=== PATIENT | female | born 1990 | race Caucasian/White ===

== ENCOUNTER 2016-09-30 20:03 | Emergency (ER) | payer OTHER ==
[2016-09-30 20:08] VITALS: BP 136/72; PULSE 71; TEMP 98.5; BMI 30.7
[2016-09-30 21:07] LABS: BASOPHIL 0.5 % (0-2.0); EOSINOPHIL 1.7 % (0-4.5); MCH 27.2 pg (25.7-33.7); MCHC 32.9 g/dl (32.0-36.0); MEAN CELL VOLUME 82.5 fl (80-96); MEAN PLT VOLUME 9.2 fl (7.5-11.1); NEUTROPHILS 50.4 % (42.8-82.8); PLATELET COUNT 221 K/MM3 (134-434); RDW 14.1 % (11.6-15.6); WHITE BLOOD COUNT 11.3 K/mm3 (4.0-10.0)
[2016-09-30 21:31] LABS: ALBUMIN 3.7 g/dl (3.4-5.0); ANION GAP 9 (8-16); BILIRUBIN,TOTAL 0.1 mg/dL (0.2-1.0); CALCIUM 7.8 mg/dL (8.5-10.1); CO2 26 mmol/L (21-32); CREATININE 0.8 mg/dL (0.55-1.02); GLUCOSE,RANDOM 92 mg/dL (74-106); SGOT/AST 12 U/L (15-37); SGPT/ALT 13 U/L (12-78); TOT PROT 7.2 g/dl (6.4-8.2)
[2016-09-30 21:40] LABS: ALK PHOS 107 U/L (45-117); FREE T4 0.85 ng/dl (0.76-1.46); THYROID STIMULATING HORMONE 0.51 uIU/ml (0.358-3.74); TROPONIN I < 0.02 ng/ml (0.00-0.05)
--- NOTE | 2016-09-30 21:57 | PDOC ---
History of Present Illness - History of Present Illness Initial Comments: 09/30/16 21:59 Patient is a 26 year old female with significant medical hx of hyperthyroidism who is presenting to the ED with chest pain and numbness/tingling to her hands bilaterally. Patient complains of substernal chest pain that has been intermittent for the past year. Her pain is sharp, stabbing, and pleuritic in nature; it is non-radiating. The patient was worked up in the ED one year ago for her chest pain; she was diagnosed with pleurisy and discharged. The patient has a secondary complaint of numbness/tingling to her hands bilaterally. The patient reports that shes always had this sensation in her hands but it worsened the past several days. She notes that her numbness is worse in her left hand. Patient admits that she ran out of her hyperthyroid medication three days ago and has stopped taking her medication since. Denies shortness of breath, diaphoresis, nausea, vomiting, diarrhea, headaches, loss of consciousness, vertigo, or recent trauma. PMD: Juan José Julian MD <Mariana Matthews - Last Filed: 09/30/16 21:59> - General History Source: Patient, Old Records Exam Limitations: No Limitations <Keny Elkins - Last Filed: 09/30/16 22:59> - General Chief Complaint: Chest Pain Stated Complaint: CHEST PAIN/BOTH HANDS SWOLLEN/NUMB Time Seen by Provider: 09/30/16 20:13 Past History <Mariana Matthews - Last Filed: 09/30/16 21:59> - Past Medical History Asthma: No Cancer: No Cardiac Disorders: No Diabetes: No HTN: No Seizures: No Thyroid Disease: Yes (hyperthyroid) - Immunization History Immunization Up to Date: Yes - Psycho/Social/Smoking Cessation Hx Anxiety: No Suicidal Ideation: No Smoking Status: No Smoking History: Never smoked Have you smoked in the past 12 months: No Number of Cigarettes Smoked Daily: 0 Hx Alcohol Use: No Drug/Substance Use Hx: No Substance Use Type: None Hx Substance Use Treatment: No <Keny Elkins - Last Filed: 09/30/16 22:59> - Past Medical History Allergies/Adverse Reactions: Allergies Allergy/AdvReac Type Severity Reaction Status Date / Time No Known Allergies Allergy Verified 09/30/16 20:05 Home Medications: Ambulatory Orders Methimazole 10 mg PO DAILY 08/27/15 Propranolol HCl [Inderal -] 10 mg PO DAILY 08/27/15 Methimazole 10 mg PO BID #60 tablet 09/30/16 Review of Systems - Review of Systems Comments:: 09/30/16 21:59 GENERAL/CONSTITUTIONAL: No fever or chills. No weakness. HEAD, EYES, EARS, NOSE AND THROAT: No change in vision. No ear pain or discharge. No sore throat. CARDIOVASCULAR: Chest pain. No shortness of breath. RESPIRATORY: No cough, wheezing, or hemoptysis. GASTROINTESTINAL: No nausea, vomiting, diarrhea or constipation. GENITOURINARY: No dysuria, frequency, or change in urination. MUSCULOSKELETAL: No joint or muscle swelling or pain. No neck or back pain. SKIN: No rash NEUROLOGIC: Numbness/tingling to hands bilaterally. No headache, vertigo, or loss of consciousness. <Mariana Matthews - Last Filed: 09/30/16 21:59> *Physical Exam - Vital Signs Last Vital Signs Temp Pulse Resp BP Pulse Ox 98.5 F 71 18 136/72 100 09/30/16 20:07 09/30/16 20:07 09/30/16 20:07 09/30/16 20:07 09/30/16 20:07 - Physical Exam Comments: 09/30/16 22:01 GENERAL: Awake, alert, and fully oriented, in no acute distress HEAD: No signs of trauma EYES: PERRLA, EOMI, sclera anicteric, conjunctiva clear ENT: Auricles normal inspection, hearing grossly normal, nares patent, oropharynx clear without exudates. Moist mucosa NECK: Normal ROM, supple, no lymphadenopathy, JVD, or masses LUNGS: Breath sounds equal, clear to auscultation bilaterally. No wheezes, and no crackles HEART: Regular rate and rhythm, normal S1 and S2, no murmurs, rubs or gallops ABDOMEN: Soft, nontender, normoactive bowel sounds. No guarding, no rebound. No masses EXTREMITIES: Normal range of motion, no edema. No clubbing or cyanosis. No cords, erythema, or tenderness NEUROLOGICAL: Paresthesias elicited on the medial aspect on the bilateral upper extremities. Paresthesias and subjective numbness bilateral hands. Cranial nerves II through XII grossly intact. Normal speech, normal gait SKIN: Warm, Dry, normal turgor, no rashes or lesions noted. ENDOCRINE: No increased thirst. No abnormal weight change. HEMATOLOGIC/LYMPHATIC: No anemia, easy bleeding, or history of blood clots. ALLERGIC/IMMUNOLOGIC: No hives or skin allergy. <Mariana Matthews - Last Filed: 09/30/16 21:59> - Vital Signs Last Vital Signs Temp Pulse Resp BP Pulse Ox 98.5 F 71 18 136/72 100 09/30/16 20:07 09/30/16 20:07 09/30/16 20:07 09/30/16 20:07 09/30/16 20:07 <Keny Elkins - Last Filed: 09/30/16 22:59> Heart Score/ECG Review #1 ECG reviewed & interpreted by me at: 20:10 09/30/16 22:34 NSR 72, T wave flat III, no std/cyndie, normal axis, normal intervals, QTC 444 msec. <Keny Elkins - Last Filed: 09/30/16 22:59> ED Treatment Course - LABORATORY CBC & Chemistry Diagram: 09/30/16 20:54 09/30/16 20:54 - ADDITIONAL ORDERS Additional order review: Laboratory Results 09/30/16 20:54 Sodium 140 Potassium 3.8 Chloride 105 Carbon Dioxide 26 Anion Gap 9 BUN 11 D Creatinine 0.8 D Creat Clearance w eGFR > 60 Random Glucose 92 Calcium 7.8 L Total Bilirubin 0.1 L AST 12 L D ALT 13 D Alkaline Phosphatase 107 D Creatine Kinase 90 Troponin I < 0.02 Total Protein 7.2 Albumin 3.7 TSH 0.51 D Free T4 0.85 D 09/30/16 20:54 RBC 4.45 MCV 82.5 MCHC 32.9 RDW 14.1 MPV 9.2 Neutrophils % 50.4 Lymphocytes % 42.9 H Monocytes % 4.5 Eosinophils % 1.7 D Basophils % 0.5 <Mariana Matthews - Last Filed: 09/30/16 21:59> - LABORATORY CBC & Chemistry Diagram: 09/30/16 20:54 09/30/16 20:54 - ADDITIONAL ORDERS Additional order review: Laboratory Results 09/30/16 20:54 Sodium 140 Potassium 3.8 Chloride 105 Carbon Dioxide 26 Anion Gap 9 BUN 11 D Creatinine 0.8 D Creat Clearance w eGFR > 60 Random Glucose 92 Calcium 7.8 L Total Bilirubin 0.1 L AST 12 L D ALT 13 D Alkaline Phosphatase 107 D Creatine Kinase 90 Troponin I < 0.02 Total Protein 7.2 Albumin 3.7 TSH 0.51 D Free T4 0.85 D 09/30/16 20:54 RBC 4.45 MCV 82.5 MCHC 32.9 RDW 14.1 MPV 9.2 Neutrophils % 50.4 Lymphocytes % 42.9 H Monocytes % 4.5 Eosinophils % 1.7 D Basophils % 0.5 <Keny Elkins - Last Filed: 09/30/16 22:59> Medical Decision Making - Medical Decision Making 09/30/16 22:52 A portion of this note was documented by scribe services under my direction. I have reviewed the details of the note, within reason, and agree with the documentation with the following case summary and management plan written by me. Patient treated in the ED. Nursing notes are reviewed and incorporated into the medical decision-making. Vital signs reviewed. Peripheral IV access obtained by the nurse, laboratory studies are drawn and sent, reviewed and interpreted by myself. Vital Signs Temp Pulse Resp BP Pulse Ox 98.5 F 71 18 136/72 100 09/30/16 20:07 09/30/16 20:07 09/30/16 20:07 09/30/16 20:07 09/30/16 20:07 26-year-old female with past medical history of hyperthyroidism presents with chronic atypical chest pain for one year and intermittent and paresthesias of her bilateral hands for proximal one year as well. Patient stated that her tingling and paresthesias of her digits and of her hand and forearm has progressively worsened. She denies any injuries. Denies other neurological deficits. Patient also reports that she's been having this chronic, unchanged in intensity or characteristic, chest pain that comes and goes not always exertional. This has been occurring for over a year. She states that she is not concerned with the chest pain as this has not changed and came for her operation was. The patient is vascularly intact. She has the subjective paresthesias. Labs were sent to look for electrolyte abnormalities but demonstrated none. EKG was normal. Patient reports that she had a recent negative EMG test. At this time, it is unclear what the etiology is of her paresthesias of her hands. However, given that this is chronic, we'll refer this to neurology for further evaluation. <Keny Elkins - Last Filed: 09/30/16 22:59> *DC/Admit/Observation/Transfer - Attestations Scribe Attestion: 09/30/16 22:01 Documentation prepared by Mariana Matthews, acting as district medical examiner for Keny Elkins MD. <Mariana Matthews - Last Filed: 09/30/16 21:59> - Discharge Dispostion Admit: No <Keny Elkins - Last Filed: 09/30/16 22:59> Diagnosis at time of Disposition: Hand paresthesia Qualifiers: Laterality: bilateral Qualified Code(s): R20.2 - Paresthesia of skin - Discharge Dispostion Disposition: HOME Condition at time of disposition: Stable - Prescriptions Prescriptions: Methimazole 10 mg PO BID #60 tablet - Referrals Referrals: Juan José Julian MD [Primary Care Provider] - Сергей Roberts MD [Staff Physician] - Torsten Kaye MD [Staff Physician] - - Patient Instructions Printed Discharge Instructions: DI for Atypical Chest Pain, DI for Numbness/ tingling Additional Instructions: Please follow up a neurologist. Please follow up with a soakers supervisor.
[2016-09-30] MEDS ORDERED: METHIMAZOLE 10 MG TABLET (FP) PO SCH (22:00)
--- NOTE | 2016-10-02 22:32 | EKG ---
Test Reason : Blood Pressure : / mmHG Vent. Rate : 072 BPM Atrial Rate : 072 BPM P-R Int : 152 ms QRS Dur : 082 ms QT Int : 406 ms P-R-T Axes : 019 008 030 degrees QTc Int : 444 ms NORMAL SINUS RHYTHM NORMAL ECG WHEN COMPARED WITH ECG OF 27-AUG-2015 12:31, NO SIGNIFICANT CHANGE WAS FOUND Confirmed by ELEN WRIGHT MD ([id number]) on 10/02/2016 10:32:25 PM Referred By: Confirmed By:ELEN WRIGHT MD
== END 2016-10-01 00:17 | disposition home or self-care (01) ==
LOC: JER 20:03
DX: R20.2 Paresthesia of skin (principal)
CPT/HCPCS: 36415; 80053; 82550; 84439; 84443; 84481; 84484; 85025; 93005; 93010; 99283-25

== ENCOUNTER 2017-04-24 19:57 | Emergency (ER) | payer OTHER ==
[2017-04-24 20:03] VITALS: BP 131/82; PULSE 68; TEMP 98.1; BMI 30.3
--- NOTE | 2017-04-24 20:47 | PDOC ---
History of Present Illness - General Chief Complaint: Headache Stated Complaint: CHEST PAIN Time Seen by Provider: 04/24/17 20:43 Past History - Past Medical History Allergies/Adverse Reactions: Allergies Allergy/AdvReac Type Severity Reaction Status Date / Time No Known Allergies Allergy Verified 09/30/16 20:05 Home Medications: Ambulatory Orders Methimazole 10 mg PO DAILY 08/27/15 Propranolol HCl [Inderal -] 10 mg PO DAILY 08/27/15 Methimazole 10 mg PO BID #60 tablet 09/30/16 Asthma: No Cancer: No Cardiac Disorders: No Diabetes: No HTN: No Seizures: No Thyroid Disease: Yes (hyperthyroid) - Immunization History Immunization Up to Date: Yes - Suicide/Smoking/Psychosocial Hx Smoking Status: No Smoking History: Never smoked Have you smoked in the past 12 months: No Number of Cigarettes Smoked Daily: 0 Information on smoking cessation initiated: No Hx Alcohol Use: No Drug/Substance Use Hx: No Substance Use Type: None Hx Substance Use Treatment: No *Physical Exam - Vital Signs Last Vital Signs Temp Pulse Resp BP Pulse Ox 98.1 F 68 16 131/82 100 04/24/17 20:00 04/24/17 20:00 04/24/17 20:00 04/24/17 20:00 04/24/17 20:00
--- NOTE | 2017-04-24 20:53 | PDOC ---
Attending Attestation - HPI HPI: 04/24/17 21:59 26 yo F with a significant past medical history of hyperthyroidism (non- compliant with meds), who presents to the emergency department with generalized headache for 2 days. She also complains of midsternal non-radiating chest pain beginning today, worsened on inspiration. Reports some nausea, denies vomiting, and took Tylenol with no significant relief. She also notes feeling cold and tired recently with associated bilateral leg cramping after walking. Pt used to see decision unit rn Dr. Hodge. Pt denies weight loss, shortness of breath, F/C. The patient denies dysuria, frequency, urgency and hematuria. - Physicial Exam PE: 04/24/17 21:59 GENERAL: Awake, alert, and fully oriented, in no acute distress HEAD: No signs of trauma EYES: PERRLA, EOMI, sclera anicteric, conjunctiva clear ENT: Auricles normal inspection, hearing grossly normal, nares patent, oropharynx clear without exudates. Moist mucosa NECK: (+) Mild thyromegaly. Normal ROM, supple. No JVD, or masses LUNGS: Breath sounds equal, clear to auscultation bilaterally. No wheezes, and no crackles HEART: Regular rate and rhythm, normal S1 and S2, no murmurs, rubs or gallops. ( +) Anterior chest wall ttp. ABDOMEN: Soft, nontender, normoactive bowel sounds. No guarding, no rebound. No masses EXTREMITIES: (+) Bilateral calf tenderness. Normal range of motion, no edema. No clubbing or cyanosis. No cords, erythema. NEUROLOGICAL: Cranial nerves II through XII grossly intact. Normal speech, normal gait SKIN: Warm, Dry, normal turgor, no rashes or lesions noted. <Joanna Rodriguez - Last Filed: 04/24/17 21:59> - Resident Resident Name: Laron Winslow - ED Attending Attestation I have performed the following: I have examined & evaluated the patient, The case was reviewed & discussed with the resident, I agree w/resident's findings & plan, Exceptions are as noted - Medical Decision Making 04/24/17 20:53 I, Dr. Verónica Dickerson, DO, attest that this document has been prepared under my direction and personally reviewed by me in its entirety. I further attest, that it accurately reflects all work, treatment, procedures and medical decision -making performed by me. 04/24/17 22:01 a/p: 26yo female with leung and cp -hx of hyperthyroid -will check labs -atypical cp -calf pain, will check dimer -will medicate and reassess 04/24/17 23:26 pt feeling much better. Leung resolved. labs reviewed with the patient. states she is currently menstruating. 04/24/17 23:29 discussed all labs with the patient. Pt states all pain resolved. Stable for d/ c to home. Will give copy of labs for pt to take to dr. hodge office. pt understands all reasons to return to the ED and need for follow up. <Verónica Dickerson - Last Filed: 04/24/17 23:31> Discharge Disposition - Discharge Dispostion Last Admission D/C Date: 11/01/13 Admit: No <Verónica Dickerson - Last Filed: 04/24/17 23:31> - Diagnosis Discomfort of chest wall, Headache - Discharge Dispostion Disposition: HOME Condition at time of disposition: Stable - Referrals Referrals: Trey Hodge MD [Staff Physician] - - Patient Instructions Printed Discharge Instructions: DI for Headache, DI for Atypical Chest Pain Additional Instructions: Please follow up with your PMD and please bring your lab work with you to his office. Please return to the ED with any further concerns. Heart Score/ECG Review - ECG Intrepretation Comment:: 04/24/17 21:15 sinus at 66, nl axis, nl interval, nonspecific t wave inversions V2 <Verónica Dickerson - Last Filed: 04/24/17 23:31>
--- NOTE | 2017-04-24 21:09 | PDOC ---
History of Present Illness - General Chief Complaint: Headache Stated Complaint: CHEST PAIN Time Seen by Provider: 04/24/17 20:43 - History of Present Illness Initial Comments: 04/24/17 21:46 26F with pmh of hyperthyroidism untreated for the past 5 months presents with generalized 7/10 non-radiating headaches with nausea for the past 2 days as well as inspiratory sternal chest pain since yesterday. Headaches are without aura and have a mild photophobia component. Complains of scalp pain upon mere hair movement. She tried Tylenol but didn't work. She used to see Dr. Barclay for her hyperthyroidism treated at the time with Methimazole but just stopped following up. 5 months ago Complains of cold intolerance and hair loss recently. Denies weight loss or weight gain 04/24/17 22:19 Past History - Past Medical History Allergies/Adverse Reactions: Allergies Allergy/AdvReac Type Severity Reaction Status Date / Time No Known Allergies Allergy Verified 09/30/16 20:05 Home Medications: Ambulatory Orders Methimazole 10 mg PO DAILY 08/27/15 Propranolol HCl [Inderal -] 10 mg PO DAILY 08/27/15 Methimazole 10 mg PO BID #60 tablet 09/30/16 Asthma: No Cancer: No Cardiac Disorders: No Diabetes: No HTN: No Seizures: No Thyroid Disease: Yes (hyperthyroid) - Immunization History Immunization Up to Date: Yes - Suicide/Smoking/Psychosocial Hx Smoking Status: No Smoking History: Never smoked Have you smoked in the past 12 months: No Number of Cigarettes Smoked Daily: 0 Information on smoking cessation initiated: No Hx Alcohol Use: No Drug/Substance Use Hx: No Substance Use Type: None Hx Substance Use Treatment: No Review of Systems - Review of Systems Constitutional: Yes: Weight Stable. No: Chills, Diaphoresis, Fever, Loss of Appetite HEENTM: Yes: See HPI. No: Blurred Vision, Recent change in vision, Cataracts, Tinnitus Respiratory: No: Cough, Orthopnea, Shortness of Breath, Wheezing Cardiac (ROS): Yes: See HPI ABD/GI: No: Symptoms Reported : No: Symptoms Reported Musculoskeletal: No: Symptoms Reported Integumentary: No: Symptoms Reported Neurological: Yes: See HPI Endocrine: Yes: Intolerance to Cold. No: Excessive Sweating, Flushing, Intolerance to Heat, Increased Hunger, Increased Thirst, Increased Urine, Unexplained Weight Gain, Unexplained Weight Loss, Change in Weight All Other Systems: Reviewed and Negative *Physical Exam - Vital Signs Last Vital Signs Temp Pulse Resp BP Pulse Ox 98.1 F 68 16 131/82 100 04/24/17 20:00 04/24/17 20:00 04/24/17 20:00 04/24/17 20:00 04/24/17 20:00 - Physical Exam General Appearance: Yes: Nourished, Appropriately Dressed HEENT: positive: EOMI, KIKI, Normal ENT Inspection, Photophobia Neck: positive: Trachea midline, Thyromegaly (Mild). negative: Tender, Lymphadenopathy (R), Lymphadenopathy (L) Respiratory/Chest: positive: Chest Tender, Lungs Clear, Normal Breath Sounds Cardiovascular: positive: Regular Rhythm, Regular Rate, S1, S2 Gastrointestinal/Abdominal: positive: Normal Bowel Sounds, Soft, Protuberent. negative: Tender Integumentary: positive: Normal Color, Dry, Warm. negative: Diaphoresis Neurologic: positive: solution architect II-XII NML intact, Fully Oriented, Alert, Normal Mood/ Affect ED Treatment Course - LABORATORY CBC & Chemistry Diagram: 04/24/17 22:05 04/24/17 22:05 Medical Decision Making - Medical Decision Making 04/24/17 22:19 26F with pmh of hyperthyroidism untreated for the past 5 months presents with generalized 7/10 non-radiating headaches with nausea for the past 2 days as well as inspiratory sternal chest pain since yesterday. Labs and lytes with TSH and T4 pending
[2017-04-24] MEDS ORDERED: METOCLOPRAMIDE HCL INJECTION 10 MG/2 ML VIAL IVPUSH ONE (21:19)
[2017-04-24] MEDS ORDERED: SODIUM CHLORIDE 1,000 ML IV STA (21:20)
[2017-04-24] MEDS ORDERED: METOCLOPRAMIDE HCL INJECTION 10 MG/2 ML VIAL ONE (21:48)
[2017-04-24 22:13] LABS: BASOPHIL 0.4 % (0-2.0); EOSINOPHIL 1.5 % (0-4.5); MCH 27.1 pg (25.7-33.7); MCHC 32.9 g/dl (32.0-36.0); MEAN CELL VOLUME 82.2 fl (80-96); MEAN PLT VOLUME 8.6 fl (7.5-11.1); NEUTROPHILS 48.1 % (42.8-82.8); PLATELET COUNT 247 K/MM3 (134-434); RDW 13.6 % (11.6-15.6); WHITE BLOOD COUNT 10.7 K/mm3 (4.0-10.0)
[2017-04-24 22:21] LABS: URINE APPEARANCE SLCLOUDY; URINE BILIRUBIN NEGATIVE (NEGATIVE); URINE BLOOD 3+ (NEGATIVE); URINE COLOR YELLOW; URINE GLUCOSE (UA) NEGATIVE (NEGATIVE); URINE KETONE NEGATIVE (NEGATIVE); URINE NITRITE NEGATIVE (NEGATIVE); URINE UROBILINOGEN NEGATIVE mg/dL (0.2-1.0)
[2017-04-24 22:22] LABS: URINE PROTEIN 2+ (NEGATIVE)
[2017-04-24 22:23] LABS: URINE MUCUS MANY; URINE RBC 385 /hpf (0-3); URINE WBC 6 /hpf (3-5)
[2017-04-24 22:39] LABS: ALBUMIN 3.9 g/dl (3.4-5.0); ANION GAP 7 (8-16); BILIRUBIN,TOTAL 0.2 mg/dL (0.2-1.0); CALCIUM 7.7 mg/dL (8.5-10.1); CO2 26 mmol/L (21-32); CREATININE 0.6 mg/dL (0.55-1.02); GLUCOSE,RANDOM 85 mg/dL (74-106); SGOT/AST 12 U/L (15-37); SGPT/ALT 13 U/L (12-78); TOT PROT 7.5 g/dl (6.4-8.2)
[2017-04-24 22:47] LABS: ALK PHOS 82 U/L (45-117); FREE T4 1.21 ng/dl (0.76-1.46); THYROID STIMULATING HORMONE 1.04 uIU/ml (0.358-3.74)
[2017-04-24] MEDS ORDERED: IBUPROFEN 600 MG TABLET (FP) PO ONE ×2 (23:29→23:35)
[2017-04-24 23:31] LABS: URINE LEUK ESTERASE Negative (NEGATIVE)
--- NOTE | 2017-04-28 11:00 | EKG ---
Test Reason : Blood Pressure : / mmHG Vent. Rate : 066 BPM Atrial Rate : 066 BPM P-R Int : 156 ms QRS Dur : 082 ms QT Int : 424 ms P-R-T Axes : 018 016 031 degrees QTc Int : 444 ms NORMAL SINUS RHYTHM WITH SINUS ARRHYTHMIA NONSPECIFIC T WAVE ABNORMALITY WHEN COMPARED WITH ECG OF 30-SEP-2016 20:10, NO SIGNIFICANT CHANGE WAS FOUND Confirmed by SPIKE AHMADI MD ([id number]) on 04/28/2017 9:49:51 AM Also confirmed by SPIKE AHMADI MD ([id number]), society editor DARRIN FOWLER ([id number]) on 04/28/2017 11:00:13 AM Referred By: Confirmed By:SPIKE AHMADI MD
== END 2017-04-24 23:51 | disposition home or self-care (01) ==
LOC: JER 19:57
PROC: 3E033GC Introduction of Other Therapeutic Substance into Peripheral Vein, Percutaneous Approach (ICD-10-PCS; principal; 2017-04-24)
DX: R07.89 Other chest pain (principal); R51 Headache; E05.90 Thyrotoxicosis, unspecified without thyrotoxic crisis or storm; Z91.19 Patient's noncompliance with other medical treatment and regimen
CPT/HCPCS: 36415; 80053; 81003; 81015; 84439; 84443; 84481; 84703; 85025; 85379; 93005; 93010; 96374; 96375; 99282-25

== ENCOUNTER 2018-06-23 05:09 | Inpatient (IN) | payer OTHER ==
[2018-06-23] MEDS ORDERED: PROMETHAZINE HCL 25 MG/1 ML VIAL IVPUSH ONE (08:34)
[2018-06-23] MEDS ORDERED: BUTORPHANOL TARTRATE 1 MG/ML VIAL IVPB ONE (08:34)
[2018-06-23] MEDS ORDERED: DEXTROSE 5%-LACTATED RINGERS 1,000 ML IV SCH (08:45)
--- NOTE | 2018-06-23 08:51 | HP ---
Past Medical History - Primary Care Physician PCP:: Mary Fallon - Admission Chief Complaint: 27 yrs 39.3/7 weeks IUP admitted in alaina labor . onset LP since 3.00AM History of Present Illness: PNC at [address] [place] [id number] 43 lbs wt gain Panel 12/01/17 : O Pos, , hbsag neg, , Hgb S neg, Rubella immune, , Rpr nr, Lead neg pap 12/01/17 Nilm, gc/ct neg , Zika IGM neg . 03/23/18 Quantiferon neg, rpr nr, 1 hr gtt 101 06/04/18 : GBS neg, gc/ct neg , HIV neg h/h 11.3 SONO : done NT screen neg, AFP screen neg History Source: Patient, Medical Record Limitations to Obtaining History: No Limitations - Past Medical History PRE PRESS PROOFER: No: Migraine, Seizure Cardiovascular: No: HTN, Murmur Pulmonary: No: Asthma Gastrointestinal: Yes: Hemorrhoids Hepatobiliary: No: Hepatitis B Renal/: No: UTI ...: 2 ...Para: 1 ( 10/30/2013 [facility] 7'7") ...Term: 1 ...: 0 ...Spon : 0 ...Induced : 0 ...LMP: 09/20/17 ... Weeks Gestation by Dates: 39.3 ...EDC by Dates: 06/27/18 ...EDC by Sono: 06/27/18 Heme/Onc: No: Sickle Cell Trait Infectious Disease: No: AIDS, HIV, STD's Psych: No: Addictions, Anxiety, Bipolar, Depression, Panic, Psychosis, Schizophrenia, Other Endocrine: Yes: Other (pt states she has abn tft but does not require meds). No: Diabetes Mellitus, Hypothyroidism - Past Surgical History Past Surgical History: Yes: None Hx Myomectomy: No Hx Transabdominal Cerclage: No - Smoking History Smoking history: Never smoked Have you smoked in the past 12 months: No Aproximately how many cigarettes per day: 0 - Alcohol/Substance Use Hx Alcohol Use: No History of Substance Use: reports: None Home Medications - Allergies Allergies/Adverse Reactions: Allergies Allergy/AdvReac Type Severity Reaction Status Date / Time No Known Allergies Allergy Verified 02/08/18 20:25 - Home Medications Home Medications: Ambulatory Orders Vit,Calc76/Iron/Folic [Pnv 29-1 Tablet] 1 tab PO DAILY 06/23/18 Physical Exam - Maternity Vital Signs: Vital Signs Temperature 98.5 F 06/23/18 05:09 Pulse Rate 74 06/23/18 05:09 Respiratory Rate 20 06/23/18 05:09 Blood Pressure 127/67 06/23/18 05:09 O2 Sat by Pulse Oximetry (%) Selected Entries 06/23/18 08:44 Weight 206 lb Constitutional: Yes: Well Nourished, No Distress, Calm, Obese Eyes: Yes: WNL HENT: Yes: WNL, Normocephalic Neck: Yes: WNL, Trachea Midline Cardiovascular: Yes: WNL, Regular Rate and Rhythm Lungs: Clear to auscultation Breast(s): Yes: WNL - Abdominal Exam/OB Fundal Height: 38 Number of Fetuses: Single Presentation: Vertex Contractions: Yes Regularity: Irregular Intensity: Mild/Mod Monitor Mode: External Heart Rate (range): 150 Heart Rate Location: [facility] [place] Category: I Accelerations: Uniform Decelerations: None - Vaginal Exam/OB Vaginal Bleediing: Bloody Show Speculum Exam: No Dilatation (cm): 2 Effacement (%): 65 Amniotic Membrane Status: Intact Presentation: Vertex/Position Station: -2 (exam at 8.20 AM) - Physical Exam Musculoskeletal: Yes: WNL Extremities: Yes: WNL. No: Calf Tenderness Edema: Yes Edema: LLE: 1+, RLE: 1+ Integumentary: Yes: WNL Deep Tendon Reflex Grade: Normal +2 ...Motor Strength: WNL Psychiatric: Yes: WNL, Alert, Oriented - Labs Lab Results: Laboratory Tests 06/23/18 06/23/18 06/23/18 08:55 08:55 08:55 WBC 11.2 H RBC 4.55 Hgb 12.3 Hct 36.4 Plt Count 204 Absolute Neuts (auto) 8.2 H Neutrophils % 73.5 D Lymphocytes % 21.2 D Monocytes % 4.1 Eosinophils % 0.7 PT with INR 11.30 INR 0.96 PTT (Actin FS) 26.6 Sodium 137 Potassium 3.8 Chloride 105 Carbon Dioxide 22 BUN 9 Creatinine 0.5 L Random Glucose 67 L Calcium 8.2 L RPR Titer 06/23/18 08:55 WBC RBC Hgb Hct Plt Count Absolute Neuts (auto) Neutrophils % Lymphocytes % Monocytes % Eosinophils % PT with INR INR PTT (Actin FS) Sodium Potassium Chloride Carbon Dioxide BUN Creatinine Random Glucose Calcium RPR Titer Nonreactive Laboratory Tests 06/23/18 08:55 Blood Type O POSITIVE Problem List - Problems (1) Elective delivery before 39 weeks of gestation Code(s): NIE3483 - (2) First stage of labor established Code(s): CVH6134 - Assessment/Plan 27 yrs 39.3/7 weeks in labor GBS neg Plan ambulate pitocin augmentation prn trial vaginal delivery
[2018-06-23 09:01] VITALS: BMI 37.6
[2018-06-23 09:40] LABS: BASO % 0.5 % (0-2.0); EOS % 0.7 % (0-4.5); HEMATOCRIT 36.4 % (32.4-45.2); HEMOGLOBIN 12.3 GM/dL (10.7-15.3); LYMPH % 21.2 % (8-40); MCHC 33.8 g/dl (32.0-36.0); MEAN CELL VOLUME 79.9 fl (80-96); MEAN PLT VOLUME 10.1 fl (7.5-11.1); MONO % 4.1 % (3.8-10.2); NEUT % 73.5 % (42.8-82.8); PLATELET COUNT 204 K/MM3 (134-434); RBC 4.55 M/mm3 (3.60-5.2); RDW 14.6 % (11.6-15.6); WHITE BLOOD COUNT 11.2 K/mm3 (4.0-10.0)
[2018-06-23 10:01] LABS: INR 0.96 (0.83-1.09); PROTHROMBIN TIME (PATIENT) 11.3 SEC (9.7-13.0)
[2018-06-23 10:03] LABS: ACTIVATED PTT 26.6 SECONDS (25.2-36.5)
[2018-06-23 10:18] LABS: ANION GAP 10 MMOL/L (8-16); BLOOD UREA NITROGEN 9 mg/dL (7-18); CALCIUM 8.2 mg/dL (8.5-10.1); CHLORIDE 105 mmol/L (98-107); CO2 22 mmol/L (21-32); CREATININE 0.5 mg/dL (0.55-1.3); GLUCOSE,RANDOM 67 mg/dL (74-106); POTASSIUM 3.8 mmol/L (3.5-5.1); SODIUM 137 mmol/L (136-145)
[2018-06-23] MEDS ORDERED: OXYTOCIN 30 UNITS in 0.9% NS 30 UNIT/500 ML INFUS.BAG IVPB ONE (11:21)
[2018-06-23] MEDS ORDERED: ELECTROLYTE-148 SOLN 1,000 ML IV SCH (11:45)
[2018-06-23] MEDS ORDERED: OXYTOCIN 30 UNITS in 0.9% NS 30 UNIT/500 ML INFUS.BAG IVPB SCH (11:45)
[2018-06-23] MEDS ORDERED: FENTANYL/BUPIVACAINE/NS/PF - PCEA - 50 ML DISP.SYRIN EP ONE (13:23)
[2018-06-23] MEDS ORDERED: NALOXONE HCL 0.4 MG/ML VIAL IVPUSH PRN (13:48)
[2018-06-23] MEDS ORDERED: LIDO 2%/EPI 1:200000 PRESRVFRE (20 ML SDVIAL) ONE (13:50)
[2018-06-23] MEDS ORDERED: BUPIVACAINE HCL/PF 0.25% (2.5MG/ML) 10 ML VIAL ONE (13:50)
[2018-06-23] MEDS ORDERED: FENTANYL/BUPIVACAINE/NS/PF - PCEA - 50 ML DISP.SYRIN EP SCH (14:00)
--- NOTE | 2018-06-23 14:21 | PN ---
Progress Note, Labor Vaginal Exam #1 Labor Exam Date: 06/23/18 Labor Exam Time: 08:30 Heart Rate (range): 130-140 Dilatation: 2 Effacement (%): 65 Amniotic Membrane Status: Intact Presentation: Vertex/Position Station: -2 Remarks: fhr cat-1 uc irregular q5-7 min ambulate Selected Entries 06/23/18 08:45 Temperature 98.4 F Pulse Rate 73 Respiratory 20 Rate Blood Pressure 117/73 11.40 AM Pitocin Augmentation started Vaginal Exam #2 Labor Exam Date: 06/23/18 Labor Exam Time: 13:36 Heart Rate (range): 130-140 Dilatation: 4 Effacement (%): 70 Amniotic Membrane Status: Intact Station: -1 Remarks: FHR cat-1 UC q3-4 min Pitocin 4ml/hr Selected Entries 06/23/18 13:00 Pulse Rate 75 Blood Pressure 118/62 2.01 PM epidural given Vaginal Exam #3 Labor Exam Date: 06/23/18 Labor Exam Time: 14:30 Heart Rate (range): 150 Dilatation: 5 Effacement (%): 70 Amniotic Membrane Status: Ruptured (AROM scanty , clear) Presentation: Vertex/Position Station: -1 (-1/0) Remarks: fhr cat-1 uc 3 min Vaginal Exam #4 Labor Exam Date: 06/23/18 Labor Exam Time: 16:00 Heart Rate (range): 110-140 Dilatation: 8 Effacement (%): 90 Amniotic Membrane Status: Ruptured Presentation: Vertex/Position Station: +1 Remarks: fhr cat-2 uc q 2 min Selected Entries 06/23/18 15:45 Pulse Rate 89 Blood Pressure 115/64 Vaginal Exam #5 Labor Exam Date: 06/23/18 Labor Exam Time: 16:20 Heart Rate (range): 90-120 Dilatation: 10 Effacement (%): 100 Amniotic Membrane Status: Ruptured Presentation: Vertex/Position Station: +2 Remarks: FHR cat-2 UC q 2min pt pushing . Selected Entries 06/23/18 06/23/18 16:00 16:15 Temperature Oral Source Pulse Rate 98 H Respiratory 20 Rate Blood Pressure 129/76 O2 Sat by Pulse 100 Oximetry (%)
[2018-06-23] MEDS ORDERED: OXYTOCIN 20 UNITS in 0.9% NS 20 UNIT/1,000 ML INFUS.BAG IV ONE (15:12)
[2018-06-23 17:05] LABS: ARTERIAL BLD GAS O2 SATURATION 63.4 % (90-98.9); ARTERIAL BLOOD GAS BASE EXCESS -1.6 meq/l (-2-2); ARTERIAL BLOOD GAS PCO2 43.2 mmHg (35-45)
[2018-06-23 17:16] LABS: ARTERIAL BLOOD GAS pH 7.35 (7.35-7.45)
[2018-06-23 17:19] LABS: VENOUS PC02 58.7 mmHg (38-52); VENOUS PO2 22.3 mmHg (28-48)
[2018-06-23 17:21] LABS: VENOUS PH 7.24 (7.32-7.42)
--- NOTE | 2018-06-23 17:23 | PN ---
Delivery - Delivery Vaginal Delivery: No Problems, Spontaneous (Baby Delievered vx presentation, GERTRUDIS position, no cord around neck , shoulder delievered without difficulty . 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 admitted in labor gbs neg pnc at [address] [place] [address] . Pitocin Augmentation was given intrapartum course uneventful . stable
[2018-06-23] MEDS ORDERED: oxyCODONE HCL 5 MG TABLET PO PRN (17:24)
[2018-06-23] MEDS ORDERED: BISACODYL 10 MG SUPP.RECT RC PRN (17:24)
[2018-06-23] MEDS ORDERED: METHYLERGONOVINE MALEATE 0.2 MG/1 ML AMP IM PRN (17:24)
[2018-06-23] MEDS ORDERED: BENZOCAINE 28 GM HEMORRHOIDAL OINTMENT TP PRN (17:24)
[2018-06-23] MEDS ORDERED: WITCH HAZEL 50% (TUCKS) 40 PAD/JAR PAD TP PRN (17:24)
[2018-06-23] MEDS ORDERED: BENZOCAINE 20% 57 GM BOTTLE TP PRN (17:24)
[2018-06-23] MEDS ORDERED: OXYTOCIN 20 UNITS in 0.9% NS 20 UNIT/1,000 ML INFUS.BAG IV SCH (17:30)
[2018-06-23] MEDS: FERROUS SO4 325 MG TABLET (FP) PO SCH (18:55)
[2018-06-24] MEDS: IBUPROFEN 600 MG TABLET (FP) PO PRN ×2 (03:06→16:57)
[2018-06-24] MEDS: ACETAMINOPHEN 325 MG TABLET (FP) PO PRN ×2 (03:07→16:57)
[2018-06-24 07:35] LABS: BASO % 0.3 % (0-2.0); EOS % 0.6 % (0-4.5); HEMOGLOBIN 10.1 GM/dL (10.7-15.3); LYMPH % 22.9 % (8-40); MCHC 33.6 g/dl (32.0-36.0); MEAN CELL VOLUME 80.4 fl (80-96); NEUT % 70.2 % (42.8-82.8); PLATELET COUNT 172 K/MM3 (134-434); RBC 3.74 M/mm3 (3.60-5.2); RDW 14.5 % (11.6-15.6); WHITE BLOOD COUNT 12.4 K/mm3 (4.0-10.0)
--- NOTE | 2018-06-24 07:56 | PN ---
Post Progress Note - Subjective Subjective: c/o tiredness. voiding without difficulty c/o cramps Post Day: 1 Type of Delivery: Vital Signs: Vital Signs Temperature 98.2 F 06/24/18 06:00 Pulse Rate 78 06/24/18 06:00 Respiratory Rate 20 06/24/18 06:00 Blood Pressure 102/62 06/24/18 06:00 O2 Sat by Pulse Oximetry (%) 100 06/23/18 16:15 Breast Exam: Yes: Soft, Other (not BF ). No: Engorged Uterus: Yes: Fundus Firm, Fundus below umbilicus, Non-tender Lochia: Yes: Rubra Lochia, amount: Moderate Extremities: Yes: Calves non-tender Perineum: Yes: Intact, Episiotomy (healing ) Activity: Ambulating - Labs Labs: CBC WBC 12.4 K/mm3 (4.0-10.0) H 06/24/18 07:00 RBC 3.74 M/mm3 (3.60-5.2) 06/24/18 07:00 Hgb 10.1 GM/dL (10.7-15.3) L 06/24/18 07:00 Hct 30.0 % (32.4-45.2) L D 06/24/18 07:00 MCV 80.4 fl (80-96) 06/24/18 07:00 MCH 27.0 pg (25.7-33.7) 06/24/18 07:00 MCHC 33.6 g/dl (32.0-36.0) 06/24/18 07:00 RDW 14.5 % (11.6-15.6) 06/24/18 07:00 Plt Count 172 K/MM3 (134-434) 06/24/18 07:00 MPV 10.0 fl (7.5-11.1) 06/24/18 07:00 Absolute Neuts (auto) 8.7 K/mm3 (1.5-8.0) H 06/24/18 07:00 Neutrophils % 70.2 % (42.8-82.8) 06/24/18 07:00 Lymphocytes % 22.9 % (8-40) 06/24/18 07:00 Monocytes % 6.0 % (3.8-10.2) 06/24/18 07:00 Eosinophils % 0.6 % (0-4.5) 06/24/18 07:00 Basophils % 0.3 % (0-2.0) 06/24/18 07:00 Nucleated RBC % 0 % (0-0) 06/24/18 07:00 Problem List - Problems (1) Elective delivery before 39 weeks of gestation Code(s): IGE8731 - (2) First stage of labor established Code(s): CIZ9119 - (3) Normal spontaneous vaginal delivery Code(s): O80 - ENCOUNTER FOR FULL-TERM UNCOMPLICATED DELIVERY (4) Encounter for care after hospital delivery Code(s): Z39.2 - ENCOUNTER FOR ROUTINE FOLLOW-UP Assessment/Plan stable. pt counselled for anemia discharge tomorrow.
[2018-06-24] MEDS: PRENATAL VITAMINS W/ FOLIC ACID TABLET (FP) PO SCH (10:39)
[2018-06-24] MEDS: FERROUS SO4 325 MG TABLET (FP) PO SCH ×2 (10:58→16:55)
[2018-06-24] MEDS ORDERED: SENNOSIDES/DOCUSATE COMBO (SENNA PLUS) TABLET (UD) PO PRN (22:00)
[2018-06-24 22:11] VITALS: TEMP 98.1
--- NOTE | 2018-06-25 07:33 | DS ---
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 Vital Signs: Vital Signs Temperature 98.1 F 06/24/18 22:00 Pulse Rate 83 06/24/18 22:00 Respiratory Rate 20 06/24/18 22:00 Blood Pressure 119/65 06/24/18 22:00 O2 Sat by Pulse Oximetry (%) 100 06/23/18 16:15 Constitutional: Yes: Well Nourished, Obese Eyes: Yes: WNL HENT: Yes: WNL, Normocephalic Neck: Yes: WNL Cardiovascular: Yes: WNL, Regular Rate and Rhythm Respiratory: Yes: WNL, CTA Bilaterally Gastrointestinal: Yes: WNL, Normal Bowel Sounds ...Rectal Exam: Yes: WNL, Other (bm not done) ....Post : Yes: Uterus firm, Moderate lochia rubra (epi wound healing) Breast(s): Yes: WNL (not engorged . bottle feeding) Musculoskeletal: Yes: WNL Extremities: Yes: WNL. No: Calf Tenderness Edema: LLE: 1+, RLE: 1+ Integumentary: Yes: Tattoos ...Motor Strength: WNL Psychiatric: Yes: WNL, Alert, Oriented Labs: CBC, BMP 06/24/18 07:00 06/23/18 08:55 Delivery - Delivery Vaginal Delivery: No Problems, Spontaneous (Baby Delievered vx presentation, GERTRUDIS position, no cord around neck , shoulder delievered without difficulty . placenta & memb delievered completely median epi was given , sutured in layers with chr catgut #2/0 under local anesthesia .[place] exam mucosa & sphincter intact) Type of Anesthesia: Epidural Episiotomy/Laceration: Midline EBL (cc): 350 Delivery, Single - Stages of Labor Date 1st Stage Initiatied: 06/23/18 Time 1st Stage Initiated: 03:00 Date 2nd Stage Initiated: 06/23/18 Time 2nd Stage Initiated: 16:20 Date of Delivery: 06/23/18 Time of Delivery: 16:46 Time Placenta Delivered: 16:57 Placenta: Yes: Spontaneous, Uterine Exploration - Condition of Infant Health Sciences Program Coordinator/Envelope Press Operator Present: No Gender: Female Weight: 7 lb 9 oz Position: Left, OA Total Hours ROM (Hrs/Mins): 2hrs 16min - 1 Minute Total Score: 9 5 Minutes Total Score: 9 - Feeding Plan Initial Plan: Elected not to breastfeed exclusively throughout hospitalization Remarks - Remarks Remarks: 27 yrs , 39.3/7 weeks . admitted in labor gbs neg pnc at [address] [place] [address] . Pitocin Augmentation was given intrapartum course uneventful . stable post course uneventful. discharge today Discharge Summary Reason For Visit: LABOR Current Active Problems Anemia (Acute) Elective delivery before 39 weeks of gestation (Acute) Encounter for care after hospital delivery (Acute) First stage of labor established (Acute) Normal spontaneous vaginal delivery (Acute) Condition: Stable - Instructions Diet, Activity, Other Instructions: Post Instructions DIET: Continue good diet high in protein, calcium, and iron rich foods. Drink at least eight (8) glasses of water daily in addition to other fluids. ct Regular diet MEDICATIONS: Continue vitamins and iron as previously directed. Motrin and Tylenol may be taken for minor discomfort. ACTIVITY: Mild to moderate exercise may be started in two (2) weeks. Take frequent rest periods. Resume normal activity after six (6) week check up. WOUND CARE OF OPERATIVE SITE: Continue use of perineal bottle until vaginal discharge stops. Keep area clean. Shower daily. Keep abdominal wound dry. Report any drainage or redness to physician. Tub baths, tampons and douches are not permitted for [address] Breast feeding & or Bottle feeding BREAST CARE: (For those that are not ): If engorgement occurs: Wear tight fitting bra. Take Tylenol or Motrin for pain. Apply cold packs (ice in bags to each breast ) FAMILY PLANNING: There are many control alternatives to pursue and they should be discussed at your first office visit. You may resume sexual activity after your six (6) week check up. (Remember, breast feeding is not a contraceptive) NEXT PHYSICIAN APPOINTMENT: Be certain to call for a four- six (4-6) week appointment, unless otherwise directed. Call Clinic or got to Emergency Dept if you have any of the following: Heavy vaginal bleeding Painful urination Leg pain Unusual odor noted to vaginal bleeding High fever Red streaking noted on breast Referrals: Mary Fallon MD [Family Provider] - Disposition: HOME - Home Medications Comprehensive Discharge Medication List: Ambulatory Orders Acetaminophen [Tylenol .Regular Strength -] 650 mg PO Q3H PRN tablet 06/23/18 Ferrous Sulfate [Feosol] 325 mg PO DAILY #30 tab 06/23/18 Ibuprofen [Motrin -] 200 mg PO Q4H PRN tablet 06/23/18 Vit,Calc76/Iron/Folic [Pnv 29-1 Tablet] 1 tab PO DAILY 06/23/18 Vitamins (Sjr) - 1 tab PO DAILY #30 tablet 06/23/18 Witch Naomi 50% (Compacks) [Tucks Pads -] 1 pad TP PRN PRN pad 06/23/18
[2018-06-25] MEDS: ACETAMINOPHEN 325 MG TABLET (FP) PO PRN (08:56)
[2018-06-25] MEDS: FERROUS SO4 325 MG TABLET (FP) PO SCH (08:56)
[2018-06-25] MEDS: IBUPROFEN 600 MG TABLET (FP) PO PRN (08:57)
[2018-06-25] MEDS: PRENATAL VITAMINS W/ FOLIC ACID TABLET (FP) PO SCH (08:59)
[2018-06-25 09:43] VITALS: BP 117/68; PULSE 76
== END 2018-06-25 12:55 | disposition home or self-care (01) | DRG 560 ==
LOC: JDEL 05:09 → JLDR 08:20 → J3W 17:56
PROVIDERS: ADMIT Obstetrics & Gynecology; ATTEND Obstetrics & Gynecology
PROC: 10E0XZZ Delivery of Products of Conception, External Approach (ICD-10-PCS; principal; 2018-06-23)
PROC: 0W8NXZZ Division of Female Perineum, External Approach (ICD-10-PCS; 2018-06-23)
DX: O99.02 Anemia complicating childbirth (principal); O99.213 Obesity complicating pregnancy, third trimester; E66.9 Obesity, unspecified; Z3A.39 39 weeks gestation of pregnancy; Z68.37 Body mass index [BMI] 37.0-37.9, adult; Z37.0 Single live birth
CPT/HCPCS: 36415; 36600; 59409; 80048; 82803; 85025; 85610; 85730; 86593; 86850; 86900; 86901